=== PATIENT | male | born 1990 | race Caucasian/White ===

== ENCOUNTER → 2019-09-17 | Outpatient (CLI) | payer BC ==
--- NOTE | 2019-09-17 13:57 | Diagnostic Imaging Report ---
INDICATION: Left foot pain. 3 views were obtained. FINDINGS: The alignment is normal. There is no fracture or dislocation. Soft tissues are unremarkable. IMPRESSION: No acute fracture or dislocation. Dictated by: Dictated on workstation # [id number]
== END ==
LOC: RAD FS 13:34
PROVIDERS: ATTEND Nurse Practitioner
DX: M79.672 Pain in left foot (principal)
CPT/HCPCS: 73630

== ENCOUNTER → 2021-07-05 | Outpatient (CLI) | payer BC ==
[~2021-07-05] MED LIST: CATHETER FLUSH 10 ML SYR IV PRN
--- NOTE | 2021-07-05 13:38 | Diagnostic Imaging Report ---
INDICATION: Abdominal pain. TECHNIQUE: The patient was administered 5.4 mCi of technetium 99m Choletec intravenously and imaging over the abdomen was performed. At 45 minutes,, the patient ingested 8 ounces of Ensure and a gallbladder ejection fraction was calculated. FINDINGS: There is homogeneous uptake of activity by the liver with prompt excretion of activity into the gallbladder and common duct. There is normal passage of activity into the small bowel. There is some minimal reflux of activity into the stomach. The gallbladder ejection fraction is slightly low at 28%. Normal values are 35% or greater. The patient denied pain during the study. IMPRESSION: 1. Patent cystic duct and common bile duct. 2. Low gallbladder ejection fraction of 28%. 3. Minimal gastric bile reflux. Dictated by: Dictated on workstation # [id number]
== END ==
LOC: CARD 12:00
PROVIDERS: ATTEND Allergy & Immunology
DX: R10.9 Unspecified abdominal pain (principal)
CPT/HCPCS: 78227; A9537